=== PATIENT | female | born 1995 | race Caucasian/White ===

== ENCOUNTER 2018-04-19 22:52 | Inpatient (IN) | payer MEDICAID ==
[~2018-04-19] VITALS: Ht 160 cm; Wt 84.0 kg
[2018-04-19] MEDS ORDERED: HALOPERIDOL 5 MG TABLET PO PRN (23:30)
[2018-04-19] MEDS ORDERED: LORazepam 2 MG TABLET PO PRN (23:30)
[2018-04-19 23:47] VITALS: BP 126/75
[2018-04-20 00:05] VITALS: BP 117/73
[2018-04-20] MEDS: ZOLPIDEM TARTRATE 10 MG TABLET PO PRN ×2 (00:32→21:51)
[2018-04-20 08:43] LABS: BASOPHILS % (AUTO) 1.2 % (0.0-2.0); EOSINOPHILS % (AUTO) 1.8 % (1.0-6.0); HEMATOCRIT 38.2 % (36-46); LYMPHOCYTES # (AUTO) 2.3 K/uL (1.0-4.8); LYMPHOCYTES % (AUTO) 39.7 % (22.0-44.0); MEAN CORPUSCULAR HEMOGLOBIN 30.7 pg (26.0-34.0); MEAN CORPUSCULAR HGB CONC 34.1 G/dL (31.0-37.0); MEAN CORPUSCULAR VOLUME 90 fL (80-100); MONOCYTES # (AUTO) 0.5 K/uL (0.1-1.0); MONOCYTES % (AUTO) 8.1 % (2.0-9.0); NEUTROPHILS # (AUTO) 2.9 K/uL (1.8-7.7); NEUTROPHILS % (AUTO) 49.2 % (40.0-70.0); PLATELET COUNT (AUTO) 235 K/uL (150-450); RED BLOOD CELL COUNT(AUTO) 4.24 MIL/uL (4.00-5.20)
[2018-04-20 08:44] VITALS: BP 114/69
[2018-04-20 09:17] LABS: HEMOGLOBIN A1C 5.8 % (4.5-6.2)
[2018-04-20 09:25] LABS: ALANINE AMINOTRANSFERASE 53 U/L (12-78); ALBUMIN 3.6 g/dL (3.4-5.0); ALKALINE PHOSPHATASE 80 U/L (46-116); ANION GAP 4 mmol/L (8-16); ASPARTATE AMINOTRANSFERASE 24 U/L (15-37); BILIRUBIN,TOTAL 0.4 mg/dL (0.1-1.0); CALCIUM, TOTAL 8.8 mg/dL (8.8-10.5); CARBON DIOXIDE 30 mmol/L (22-29); CHLORIDE 107 mmol/L (98-107); CHOL/HDL RATIO 3.7 (3.9-5.7); CHOLESTEROL 176 mg/dL (131-200); CREATININE 0.65 mg/dL (0.60-1.30); FREE T4 (FREE THYROXINE) 0.91 ng/dL (0.76-1.46); GLOMERULAR FILTR. RATE CALC > 60 mL/min (>60); GLUCOSE,RANDOM 99 mg/dL (70-110); HCG,QUANTITATIVE < 1 mIU/mL (0-6); HDL CHOLESTEROL 48 mg/dL (40-60); LDL CHOL (CALC.) 101 mg/dL (0-130); POTASSIUM 4.2 mmol/L (3.5-5.1); SODIUM SERUM 141 mmol/L (136-145); THYROID STIMULATING HORMONE 3.35 uIU/mL (0.36-3.74); TOTAL PROTEIN, SERUM 6.9 g/dL (6.4-8.2); TRIGLYCERIDES 133 mg/dL (15-150); UREA NITROGEN, BLOOD 7 mg/dL (7-18)
[2018-04-20] MEDS: ESCITALOPRAM OXALATE 10 MG TABLET PO SCH (12:46)
[2018-04-20] MEDS: ONDANSETRON HCL 4 MG TABLET PO PRN (13:05)
[2018-04-20] MEDS ORDERED: ACETAMINOPHEN 325 MG TABLET PO PRN (16:00)
[2018-04-20] MEDS ORDERED: IBUPROFEN 400 MG TABLET PO PRN (16:00)
[2018-04-20 16:25] VITALS: BP 116/65
[2018-04-21 01:09] VITALS: BP 123/78
[2018-04-21 08:13] VITALS: BP 113/71
[2018-04-21] MEDS: ESCITALOPRAM OXALATE 10 MG TABLET PO SCH (09:15)
[2018-04-21 16:52] VITALS: BP 117/63
[2018-04-21] MEDS ORDERED: ESCITALOPRAM OXALATE 10 MG TABLET PO SCH (21:00)
[2018-04-22 07:02] VITALS: BP 120/83
[2018-04-22 08:01] VITALS: BP 114/68
[2018-04-22] MEDS: ONDANSETRON HCL 4 MG TABLET PO PRN (10:08)
[2018-04-22] MEDS ORDERED: ESCI10TA PO (13:02)
== END 2018-04-22 13:40 | disposition home or self-care (01) | DRG 751 ==
LOC: B2S 23:44 → EDSTATUS 23:48
DX: F33.2 Major depressive disorder, recurrent severe without psychotic features (principal); F10.10 Alcohol abuse, uncomplicated; F19.10 Other psychoactive substance abuse, uncomplicated; Z79.899 Other long term (current) drug therapy; Z71.51 Drug abuse counseling and surveillance of drug abuser; Z71.41 Alcohol abuse counseling and surveillance of alcoholic
CPT/HCPCS: 83036; 84439; 84443; 99285; Q0162